=== PATIENT | female | born 1950 | race Caucasian/White ===

== ENCOUNTER → 2017-03-19 | Outpatient (CLI) | payer OTHER ==
[~2017-03-19] MED LIST: ALPR0.25 PO; AMLO10TA4 PO; BUPR100T6 PO; DIAZ5TAB PO; METH750T87 PO; OXYC-302 PO; URSO250T9 PO
== END | disposition home or self-care (01) ==
LOC: CFH 12:32
PROVIDERS: ATTEND Neurological Surgery
DX: M50.322 Other cervical disc degeneration at C5-C6 level (principal); M48.02 Spinal stenosis, cervical region; M25.78 Osteophyte, vertebrae; Z98.1 Arthrodesis status; Z98.890 Other specified postprocedural states
CPT/HCPCS: 72050

== ENCOUNTER → 2019-10-15 | Outpatient (CLI) | payer MEDICARE ==
[~2019-10-15] MED LIST changes: +BUPR150T73 PO; +CALC1CAP8 PO; +IBAN150T15 PO; +MELA3TAB15 PO; +MOME15OI2 TD; +MULT-806 PO
== END | disposition home or self-care (01) ==
LOC: STAR 10:38
PROVIDERS: ATTEND Student in an Organized Health Care Education/Training Program
DX: Z01.818 Encounter for other preprocedural examination (principal)
CPT/HCPCS: 93005

== ENCOUNTER 2019-10-20 08:24 | Day surgery (SDC) | payer MEDICARE ==
[~2019-10-20] VITALS: Ht 157.5 cm; Wt 60.2 kg
[2019-10-20] MEDS ORDERED: BUPIVACAINE/PF 0.5% ONE (08:25)
[2019-10-20] MEDS ORDERED: LACTATED RINGERS 1,000 ML IV SCH (08:42)
[2019-10-20 08:45] VITALS: BP 132/94
[2019-10-20] MEDS ORDERED: MIDAZOLAM 1 MG/ML, 2ML ONE (10:27)
[2019-10-20] MEDS ORDERED: FENTANYL PF 250 MCG/5ML ONE (10:27)
[2019-10-20] MEDS ORDERED: DEXAMETHASONE 4 MG/ML, 1ML ONE (10:54)
[2019-10-20] MEDS ORDERED: PROPOFOL 10 MG/ML, 20ML ONE ×2 (10:54→11:07)
[2019-10-20] MEDS ORDERED: ONDANSETRON 2MG/ML, 2ML ONE (10:54)
[2019-10-20] MEDS ORDERED: CEFAZOLIN 1,000 MG ONE (10:54)
[2019-10-20] MEDS ORDERED: PROPOFOL 50 ML ONE (11:08)
[2019-10-20] MEDS ORDERED: OXYcodone 5 MG/5 ML ORAL.SOL UDC PO PRN (11:30)
[2019-10-20] MEDS ORDERED: PROMETHAZINE 25 MG/ML, 1ML IV PRN (11:30)
[2019-10-20] MEDS ORDERED: ONDANSETRON 2MG/ML, 2ML IV PRN (11:30)
[2019-10-20] MEDS ORDERED: DIAZEPAM 5 MG/ML, 2ML IVPush PRN (11:30)
[2019-10-20] MEDS ORDERED: FENTANYL PF 100 MCG/2ML IV PRN (11:30)
[2019-10-20] MEDS ORDERED: MEPERIDINE/PF 25MG/ML,1ML IVPush PRN (11:30)
[2019-10-20] MEDS ORDERED: DIPHENHYDRAMINE 50 MG/ML, 1ML IVPush PRN (11:30)
[2019-10-20] MEDS ORDERED: ACETAMINOPHEN 325 MG TABLET PO PRN (11:30)
[2019-10-20] MEDS ORDERED: MORPHINE SULFATE 4 MG/ML, 1ML IVPush PRN (11:30)
[2019-10-20] MEDS ORDERED: ONDANSETRON ODT 8 MG PO PRN (11:30)
== END 2019-10-20 14:05 | disposition home or self-care (01) ==
LOC: OUT 08:24
PROVIDERS: ATTEND Student in an Organized Health Care Education/Training Program
DX: R22.32 Localized swelling, mass and lump, left upper limb (principal); I10 Essential (primary) hypertension; F17.210 Nicotine dependence, cigarettes, uncomplicated; Z79.899 Other long term (current) drug therapy; Z98.890 Other specified postprocedural states
CPT/HCPCS: 24071; 88307; J2250; J2704; J3010; J7120; 88304; J0690; J1100; J2405